=== PATIENT | female | born 1955 | race Caucasian/White ===

== ENCOUNTER 2016-12-02 12:04 | Inpatient (IN) ==
[2016-12-02] MEDS ORDERED: NS 1,000 ML IV ONE ×2 (12:30→14:44)
--- NOTE | 2016-12-02 13:06 | PROVIDER DOCUMENTATION ---
This chart was entered by Kaleigh Espinosa Scribe, acting as scribe for Fausto Hillman MD. HPI-General Adult - General Chief Complaint: Nausea/Vomiting Stated Complaint: weakness,nausea Time Seen by Provider: 12/02/16 12:24 Source: patient Allergies/Adverse Reactions: Patient Allergies Allergy/AdvReac Type Severity Reaction Status Date / Time codeine AdvReac Unknown Verified 03/22/15 15:33 Home Medications: Home Medication List Medication Instructions Recorded Confirmed Last Taken Type Bumetanide 1 mg PO DAILY 03/22/15 03/22/15 12/01/16 History Clonidine [Catapres] 0.1 mg PO DAILY 03/22/15 03/22/15 12/01/16 History Levofloxacin [Levaquin] 500 mg PO DAILY #10 tablet 03/22/15 12/01/16 Rx Lisinopril/Hydrochlorothiazide 10 mg PO DAILY 03/22/15 03/22/15 12/01/16 History [Lisinopril-Hctz 10-12.5 mg Tab] Methotrexate 4.2 mg PO DIRECTED 03/22/15 03/22/15 12/01/16 History - History of Present Illness -Gen Adult Nature of Presenting Problems: Pt is 61 y/o F presents to the ED with N and V. Pt states has been present for one week. Pt has had a cholecystectomy and has been having normal bowel movements. Location of Pain/Injury: reports: none Pain Radiation: reports: no radiation Quality of Pain: reports: none Severity: reports: mild Onset/Duration: reports: 1 week ago Timing: reports: intermittent Context/Activities at Onset: reports: light activity Modifying Factors: improves with: nothing Associated Symptoms: reports: nausea, vomiting Similar Symptoms Previously?: Yes Recently seen or treated by another doctor?: No Review of Systems - Adult - REVIEW OF SYSTEMS - ADULT Constitutional: reports: no symptoms reported Eyes: reports: no symptoms reported Ears, Nose, Mouth & Throat: reports: no symptoms reported Cardiovascular: reports: no symptoms reported Respiratory: reports: no symptoms reported Gastrointestinal: reports: nausea, vomiting. denies: abdominal pain, diarrhea Genitourinary: reports: no symptoms reported Musculoskeletal: reports: no symptoms reported Integumentary: reports: no symptoms reported Neurological: reports: no symptoms reported Psychiatric: reports: no symptoms reported Endocrine: reports: no symptoms reported Hematologic/Lymphatic: reports: no symptoms reported Allergic/Immunologic: reports: no symptoms reported All Other Systems: Reviewed and Negative Past History - Adult - PAST MEDICAL HISTORY-ADULT Review of Records: reports: Nursing Assessment Review, Medications Reviewed, Social history reviewed & non-contributory. Major Childhood Illnesses: reports: denies history Cardiovascular: reports: HTN Respiratory: reports: denies history Gastrointestinal: reports: denies history Obstetrical/Gynecological: reports: denies history Genitourinary: reports: denies history Musculoskeletal: reports: denies history Neurological: reports: denies history Endocrine/Immune: reports: Diabetes Other Conditions: reports: denies history - PRIOR SURGERIES/PROCEDURES Surgical/Procedure History: reports: cholecystectomy - IMMUNIZATION STATUS Childhood Immunizations: See Nurse Assessment Flu Vaccine: See Nurse Assessment - FAMILY HISTORY Family History: reviewed, not pertinent - SOCIAL HISTORY Smoking: quit less than 1 year, cigarettes Substance Use: denies Living Situation: family Physical Exam-General - PHYSICAL EXAM-ADULT Initial Vital Signs Reviewed: Yes - CONSTITUTIONAL General Appearance: appears well, alert, no apparent distress - EYES Eyes: PERRL/EOMI, pink conjunctivae - HEAD, EARS, NOSE, MOUTH & THROAT HENMT: normocephalic/atraumatic, moist mucous membranes, normal ENT inspection - NECK Neck: non-tender, normal inspection - RESPIRATORY Respiratory: chest non-tender, lungs clear, normal breath sounds - CARDIOVASCULAR Cardiovascular: normal peripheral pulses, regular rate, rhythm - GASTROINTESTINAL (ABDOMEN) Abdominal Exam: normal bowel sounds, non tender, soft - LYMPHATIC Lymphatic: no adenopathy - MUSCULOSKELETAL Back Exam: normal inspection Extremity: normal range of motion, normal inspection - SKIN Integumentary: normal color, normal turgor, warm/dry - NEUROLOGIC Neurologic: grossly normal - PSYCHIATRIC Psych/Mental Status: normal mood/affect, oriented x 3 Progress - PLAN OF CARE/RESULTS Progress/Plan/Lab Results: Vital Signs - 8 hr 12/02/16 12:15 Temperature 98.0 F Pulse Rate 84 Respiratory Rate 18 Blood Pressure 129/79 O2 Sat by Pulse Oximetry 96 Orders Category Date Time Status Saline Loc DIRECTED Care 12/02/16 12:30 Active NPO Diet 12/02/16 12:30 Active FLAT/UPRIGHT ABD/1 VIEW CHEST [RAD] Stat Exams 12/02/16 12:31 Ordered AMYLASE [CHEM] Stat Lab 12/02/16 12:30 Uncollected CBC WITH ELECTRONIC DIFF [HEME] Stat Lab 12/02/16 12:30 Uncollected COMPREHENSIVE METABOLIC PANEL [CHEM] Stat Lab 12/02/16 12:30 Uncollected LIPASE [CHEM] Stat Lab 12/02/16 12:30 Uncollected URINALYSIS W/POSS RFLX CULT-1 [URINALYSIS] Stat Lab 12/02/16 12:30 Uncollected 0.9% Sodium Chloride Inj [Ns] 1,000 ml Med 12/02/16 12:30 Active IV 999 mls/hr Result Diagrams: 12/02/16 13:41 12/02/16 13:41 - REASSESSMENT Reassessment #1 Time Reassessed: 14:55 Status: unchanged (not vomiting, but not taking anything orally) - XRAY 1 XRAY Study: Chest, Abdomen Impression: Normal XRAY Interpretation: no acute abnormality. - CONSULTS/PCP/HOSPITALIST Notification #1 *Consult/PCP/Hospitalist*: Dr. Quigley Time Discussed: 14:53 Reason/Comments: Dr. Hillman consulted with Dr. Quigley about PT Consult Disposition: Admit Departure - Departure Date of Disposition Decision: 12/02/16 Time of Disposition Decision: 14:54 DIAGNOSIS: Pancreatitis, acute Qualifiers: Pancreatitis type: idiopathic Acute pancreatitis complication: unspecified Qualified Code(s): K85.00 - Idiopathic acute pancreatitis without necrosis or infection Disposition: ADMITTED INPATIENT 09 Certified Medical Emergency: Emergent Condition: Stable Referrals and Follow-Ups: Rosario Sandhu MD [Primary Care Provider] - - Critical Care Note This patient required my direct & personal management of CC.: No This chart was documented by the indicated scribe, (Kaleigh Espinosa Scribe) and accurately reflects the services I performed and decisions made by me, Fausto Hillman MD, as attested by the provider's signature.
--- NOTE | 2016-12-02 13:33 | Diag Imaging Result Doc PS360 ---
EXAM: FLAT/UPRIGHT ABD/1 VIEW CHEST HISTORY: N/V TECHNIQUE: Four views COMPARISON: Chest is compared to 03/26/2015 FINDINGS: The lungs are well expanded. The heart is not enlarged. No pneumonia. Dense nodule in the lower left lung is unchanged. No free air beneath the diaphragm. Moderate scoliosis. The gallbladder has been removed. No bowel obstruction. No organomegaly. There are multiple calcifications within the liver consistent with granuloma. Long-standing arthritic changes to the hips, particularly on the right. IMPRESSION: No acute abnormality. Electronically signed by Max Maravilla 12/02/2016 1:30 PM
[2016-12-02 13:54] LABS: MANUAL DIFF NEEDED? NO
[2016-12-02 13:59] LABS: BASO% 0.1 % (0.0-0.8); EOS# 0.09 X1000 (0.0-0.7); EOS% 0.9 % (0.0-10.0); HEMATOCRIT 47.7 % (37.0-47.0); HEMOGLOBIN 15.4 g/dL (12.0-16.0); LYMPH# 1.22 X1000 (1.2-3.4); LYMPH% 11.6 % (20.5-51.1); MCH 27.4 PG (27-31); MCHC 32.3 g/dL (33-37); MCV 84.7 FL (81-99); MONO# 0.81 X1000 (0.11-0.59); MONO% 7.7 % (1.7-9.3); MPV 11.1 FL (7.4-10.4); NEUT% 79.7 % (42.2-75.2); PLT 400 X1000 (130-400); RBC 5.63 XMIL (4.2-5.4)
[2016-12-02] MEDS ORDERED: ZOFRAN ODT PO ONE (14:04)
[2016-12-02 14:24] LABS: AGAP 26; ALBUMIN 4.1 g/dL (3.5-5.0); ALKALINE PHOSPHATASE 64 U/L (32-104); AMYLASE 41 U/L (20-200); BUN 30 mg/dL (8-22); CALCIUM 9.7 mg/dL (8.8-10.2); CHLORIDE 83 mmol/L (98-107); COSMO 269; GOT 17 U/L (10-30); GPT 11 U/L (10-36); LIPASE 82 U/L (13-60); POTASSIUM 4.3 mmol/L (3.5-5.1); SODIUM 131 mmol/L (136-145); TCO2 22 mmol/L (25-35); TOTAL PROTEIN 8.1 g/dL (6.3-8.3)
[2016-12-02] MEDS ORDERED: ZOFRAN IV PRN (16:36)
[2016-12-02] MEDS: NS 1,000 ML IV SCH (17:43)
[2016-12-02] MEDS: LOVENOX SUBQ SCH (17:43)
--- NOTE | 2016-12-02 17:44 | HISTORY AND PHYSICAL ---
PRIMARY CARE PHYSICIAN: Dr. Nigel Sandhu. CHIEF COMPLAINT: Intractable nausea and vomiting. HISTORY OF PRESENT ILLNESS: A 61-year-old, white female with past medical history significant for diabetes (diet controlled), hypertension, psoriatic arthritis, asthma, chronic lower extremity lymphedema, and history of a laparoscopic cholecystectomy. Presents for evaluation of above- mentioned symptoms. Current history of present illness began on Sunday. At that time, patient developed acute onset nausea and vomiting. At that time, she denied additional symptoms including fevers, chills, abdominal pain, changes in bowel movements, and change in urination. Patient attributed her symptoms to a viral illness. Patient states by Sunday morning , her symptoms had improved considerably. Throughout the day Sunday, patient did reasonably well. Unfortunately, on Sunday evening, symptoms returned. Since that time, the symptoms have persisted and progressed. Once again, she complains primarily of nausea and vomiting. She does note some increasing fatigue as well as symptoms consistent with orthostasis. She has had intermittent palpitations. She denies change in bowel movements, hematochezia, melena, fevers, chills, abdominal pain, sick contacts, shortness of breath, chest pain, and recent change in her diet. Her p.o. intake has been minimal, none since . Because of her persistent and progressive illness, patient presented to the emergency department for further evaluation and management. Upon arrival, laboratory data was drawn. Patient was noted to have a borderline elevated white blood cell count of 10.53. Labs were consistent with dehydration. Lipase was slightly elevated at 82. The patient will be admitted to the hospital for full evaluation and management of this condition. PAST MEDICAL HISTORY: 1. Dietary controlled diabetes. 2. Hypertension. 3. History of psoriatic arthritis. 4. Asthma. 5. Chronic lower extremity lymphedema. 6. History of bilateral carpal tunnel releases. 7. History of a laparoscopic cholecystectomy in 2000 secondary to symptomatic cholelithiasis. CURRENT MEDICATIONS: 1. Clonidine 0.1 mg at bedtime. 2. Lisinopril/hydrochlorothiazide 20/25 daily. 3. Lasix 40 mg daily as needed. 4. Methotrexate 8 tablets weekly on Wednesdays. 5. Dulera 2 puffs twice daily. 6. Tylenol Arthritis every 8 hours. 7. Over the counter acid relief daily (unknown medication). ALLERGIES: Patient answered no known drug allergies. 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 She denies tobacco, alcohol or illicit drug use. FAMILY HISTORY: Patient's mother passed at age 82 secondary to complications of multiple chronic illnesses. Patient's father passed at age 83 secondary to multiple chronic illnesses. REVIEW OF SYSTEMS: A 12 point review of systems was performed. Pertinent positives and negatives are noted in history of present illness. PHYSICAL EXAMINATION: Temperature 98.0 degrees, heart rate 78, respiration is 18, blood pressure is 111/80. GENERAL: Chronically ill appearing, in no acute distress. HEENT: Normocephalic, atraumatic. Pupils equal, round, reactive to light. Extraocular muscles intact. Sclerae anicteric. [place] conjunctivae. Oral and nasopharynx clear without exudate. NECK: Supple. No lymphadenopathy. No thyromegaly. No bruits auscultated. CARDIOVASCULAR: Regular rate and rhythm. No significant murmurs, rubs, or gallops. PULMONARY: Clear to auscultation bilaterally. ABDOMEN: Soft, nontender, nondistended. Decreased bowel sounds. EXTREMITIES: Moves all extremities well. The patient presents with bilateral lower extremity compression hose. No significant clubbing, cyanosis or edema. DERMATOLOGIC: No evidence of rash. NEUROLOGIC: Cranial nerves 2 through 12 grossly intact. Motor and sensory grossly intact. PSYCHOLOGIC: Examination is appropriate. LABORATORY DATA: White blood cell count 10.53, hemoglobin 15.4, hematocrit 47.7 , platelet count is 400,000. Sodium 131, potassium 4.3, chloride 83, bicarb 22, BUN 30, creatinine 0.8, glucose 104, calcium 9.7, total bilirubin 0.60, total protein 8.1, albumin 4.1, alkaline phosphatase 64, AST 17, ALT 11, amylase 41, lipase 82. IMAGING: X-ray of the abdomen reveals no acute abnormality. ASSESSMENT AND PLAN: A 61-year-old, white female with a complicated past medical history as noted who presents for evaluation of intractable nausea and vomiting. Upon arrival, patient was found to have be significantly dehydrated with a slight elevation of lipase. Examination is significant only for hypoactive bowel sounds. The patient will be admitted to the hospital for full evaluation and management of this condition. 1. Admit to General Medicine. 2. Intractable nausea and vomiting - At this point, I suspect this is likely secondary to a viral illness. In addition, this is likely compounded by underlying dehydrated state. The patient will be placed on aggressive IV hydration. At this point, with a completely benign abdominal examination, we will hold off on further radiologic imaging. Should her condition not improve rapidly, we will consider further evaluation. We will start as-needed Zofran. 3. Dehydration - This is apparent on examination and per laboratory data. The patient will be started on IV fluids. This, too, will be followed as an inpatient. 4. Mild elevation of lipase with possible early pancreatitis - Examination would suggest this is not an underlying pancreatitis. I suspect the elevation of lipase is reactive rather than of primary etiology. We will, however, aggressively manage this condition with IV hydration. 5. Mild hyponatremia - The patient is currently treated with chronic diuretics. I suspect this is the etiology. These will be held for now. 6. Hypertension - The patient's clonidine, lisinopril, and hydrochlorothiazide will be held for now. I suspect that patient has experienced intermittent orthostatic hypotension associated with her dehydrated state and continued medications. We will follow this closely as an inpatient as well. 7. Psoriatic arthritis - We will hold patient's methotrexate. We will continue Tylenol Arthritis as needed. 8. Asthma - We will continue patient on Dulera therapy. 9. Fluid, electrolytes, nutrition - We will monitor electrolytes. Normal saline at 100 mL an hour. A clear liquid diet. 10. Prophylaxis - Patient will be placed on subcutaneous Lovenox. cc: MD Madyson Rios MD MTDAva
[2016-12-02 18:31] LABS: URINE CULTURE NEEDED? NO; URINE MICRO REVIEW NEEDED? NO; URINE SOURCE CATH
[2016-12-02 18:33] LABS: BILIRUBIN URINE SMALL (NEGATIVE); BLOOD URINE MODERATE (NEGATIVE); COLOR YELLOW; GLUCOSE URINE NEGATIVE (NEGATIVE); LEUKOCYTES URINE NEGATIVE (NEGATIVE); NITRITE URINE NEGATIVE (NEGATIVE); PROTEIN URINE 30 mg/dL (NEGATIVE); SP GRAVITY URINE 1.022; TURBIDITY URINE CLEAR (CLEAR); UR EPITHELIAL CELLS <10 /HPF (<10); URINE BACTERIA NEGATIVE /HPF; URINE RBC <10 /HPF (<10); URINE WBC <10 /HPF (<10); UROBILINOGEN URINE NORMAL (NORMAL)
[2016-12-02] MEDS ORDERED: DULERA 100 MCG/5 MCG INHALER INH SCH (19:30)
[2016-12-02] MEDS: PRILOSEC PO SCH (20:12)
[2016-12-03] MEDS: PRILOSEC PO SCH (06:01)
[2016-12-03 06:06] LABS: MANUAL DIFF NEEDED? NO
[2016-12-03 06:10] LABS: BASO% 0.1 % (0.0-0.8); EOS# 0.28 X1000 (0.0-0.7); EOS% 3.7 % (0.0-10.0); HEMATOCRIT 42.4 % (37.0-47.0); HEMOGLOBIN 13.9 g/dL (12.0-16.0); IMM GRAN# 0.02 X1000 (0.0-0.04); IMM GRAN% 0.3 % (0.0-0.5); LYMPH# 1.44 X1000 (1.2-3.4); LYMPH% 18.9 % (20.5-51.1); MCH 27.6 PG (27-31); MCHC 32.8 g/dL (33-37); MCV 84.3 FL (81-99); MONO# 0.57 X1000 (0.11-0.59); MONO% 7.5 % (1.7-9.3); NEUT% 69.5 % (42.2-75.2); PLT 316 X1000 (130-400); RBC 5.03 XMIL (4.2-5.4)
[2016-12-03 06:34] LABS: AGAP 13; ALBUMIN 3.3 g/dL (3.5-5.0); ALKALINE PHOSPHATASE 53 U/L (32-104); AMYLASE 35 U/L (20-200); BUN 17 mg/dL (8-22); CALCIUM 8.7 mg/dL (8.8-10.2); CHLORIDE 97 mmol/L (98-107); COSMO 274; GOT 12 U/L (10-30); GPT 9 U/L (10-36); LIPASE 82 U/L (13-60); POTASSIUM 3.2 mmol/L (3.5-5.1); SODIUM 136 mmol/L (136-145); TCO2 26 mmol/L (25-35); TOTAL BILIRUBIN 0.54 mg/dL (0.20-1.00); TOTAL PROTEIN 6.4 g/dL (6.3-8.3)
[2016-12-03] MEDS: TYLENOL PO PRN ×3 (09:32→22:04)
[2016-12-03] MEDS: NS 1,000 ML IV SCH ×3 (09:33→22:03)
[2016-12-03] MEDS ORDERED: KLOR-CON PO ONE (10:34)
--- NOTE | 2016-12-03 12:50 | PROGRESS NOTE ---
DATE: 12/03/2016 SUBJECTIVE: Mrs. Donna Vanegas was admitted to [facility] with intractable nausea and vomiting. She was able to tolerate clear liquids last night and this morning. She still feels nauseated but has had no further vomiting. She denies any abdominal pain. She had a normal bowel movement this morning. She denies any fever, chills, nausea, or vomiting. PHYSICAL EXAMINATION: Vital signs: Her blood pressure remains in the 120 systolically and the 70s diastolically off blood pressure medications. Temperature 98.0 degrees, pulse 61, respirations 18, BP 127/73. CV: Regular rate and rhythm. Lungs: Clear. Abdomen: Soft, nontender, with active bowel sounds. No hepatosplenomegaly. No abdominal bruits. ASSESSMENT: 1. Volume depletion secondary to intractable nausea and vomiting. 2. Intractable nausea and vomiting secondary to viral gastroenteritis. 3. Mild hyponatremia, resolved. PLAN: We will continue fluid resuscitation with normal saline at 100 mL per hour I will advance her to a bland diet. We will treat the nausea on a p.r.n. basis with Zofran. If she is able to tolerate a bland diet without persistent nausea and vomiting or abdominal pain, I believe that we should be able to discharge her home tomorrow. cc: Madyson Sandhu MD
[2016-12-03] MEDS: LOVENOX SUBQ SCH (16:58)
[2016-12-04] MEDS: PRILOSEC PO SCH (06:14)
[2016-12-04 06:21] LABS: AGAP 11; BUN 10 mg/dL (8-22); CALCIUM 8.3 mg/dL (8.8-10.2); CHLORIDE 101 mmol/L (98-107); COSMO 273; POTASSIUM 3.7 mmol/L (3.5-5.1); SODIUM 137 mmol/L (136-145); TCO2 25 mmol/L (25-35)
[2016-12-04 07:50] VITALS: BP 124/73
[2016-12-04] MEDS: NS 1,000 ML IV SCH (08:15)
[2016-12-04] MEDS: TYLENOL PO PRN (08:15)
--- NOTE | 2016-12-05 13:19 | DISCHARGE SUMMARY ---
ADMISSION DATE: 12/02/2016 DISCHARGE DATE: 12/04/2016 DISCHARGE DIAGNOSES: 1. Volume depletion secondary to intractable nausea and vomiting. 2. Intractable nausea and vomiting due to a viral gastroenteritis. 3. Essential hypertension. 4. Mild intermittent asthma, uncomplicated. 5. Gastroesophageal reflux disease. 6. Psoriatic arthritis. 7. Chronic lower extremity lymphedema. 8. Type 2 [id number] diabetes mellitus controlled by diet alone. DISCHARGE INSTRUCTIONS: 1. Return to clinic in 1 week to see me, Dr. Familia Sandhu, for transition of care visit. 2. Activity as tolerated. 3. 1800 calorie ADA diet. MEDICATIONS: Dulera 100/5 two puffs b.i.d., omeprazole 40 mg daily, lisinopril/hydrochlorothiazide 20/25 mg p.o. daily, methotrexate 2.5 mg as directed, ranitidine 150 mg daily. PHYSICAL EXAMINATION: General: This is a well-developed, well-nourished, 61-year-old lady in no apparent distress. Vital signs: She is afebrile. Vital signs are stable. CV: Regular rate and rhythm. Lungs: Clear. Abdomen: Soft, nontender, with active bowel sounds. HOSPITAL COURSE: Mrs. Vanegas was admitted to [facility] with persistent nausea and vomiting. She had no additional symptoms such as fever, chills, abdominal pain or diarrhea. She was admitted to [facility]. Her blood pressure medicines were held. She was aggressively rehydrated with normal saline. Her nausea and vomiting was treated on a p.r.n. basis with Zofran. As her nausea and vomiting improved she was started on clear liquids and she was advanced to a GI soft diet at the time of discharge. She was tolerating a GI soft diet without nausea, vomiting, or abdominal pain at the time of discharge. We felt that she had a viral gastroenteritis. I really stressed to her the importance of drinking plenty of fluids at home. I told her that if she were drinking enough fluids that her urine would be clear when she voided. She does have a longstanding history of hypertension. We initially held her blood pressure medicines due to the volume depletion. Her blood pressure remains stable with fluid resuscitation. Systolic blood pressures were in the 120s whereas her diastolic blood pressures range from 60-80. At the time of discharge I felt that her blood pressure was not high enough to justify resuming clonidine. We also held the additional Lasix which I felt contributed to the volume depletion in the setting of a viral gastroenteritis. We will continue lisinopril/hydrochlorothiazide 20/25 mg 1 p.o. daily and I will recheck her blood pressure in the office in 1 week. She does have a longstanding history of asthma. Clinically she is breathing comfortably. She denies any shortness of breath or unexplained cough. We will continue to Dulera 2 puffs b.i.d. and use a Proventil HFA inhaler 2 puffs q.6 hours for breakthrough shortness of breath. She does have a longstanding history of psoriatic arthritis. Her joint pain is under fairly good control. We will resume Tylenol every 8 hours as needed for joint pain and resume the methotrexate 2.5 mg 8 tablets weekly. Having reached maximum hospital benefit, the patient was discharged in stable condition. cc: Madyson Sandhu MD
== END 2016-12-04 11:12 | disposition home or self-care (01) ==
LOC: ED 12:04 → 4N 16:17
PROVIDERS: ADMIT Internal Medicine; ATTEND Internal Medicine

== ENCOUNTER 2018-09-12 23:22 | Inpatient (IN) ==
[2018-09-13 01:48] LABS: BASO# 0.01 X1000 (0.0-0.2); BASO% 0.1 % (0.0-0.8); EOS# 0.16 X1000 (0.0-0.7); HEMATOCRIT 32.8 % (37.0-47.0); HEMOGLOBIN 10.2 g/dL (12.0-16.0); IMM GRAN# 0.02 X1000 (0.0-0.04); IMM GRAN% 0.2 % (0.0-0.5); LYMPH# 1.27 X1000 (1.2-3.4); LYMPH% 15.5 % (20.5-51.1); MCH 26.1 PG (27-31); MCHC 31.1 g/dL (33-37); MCV 83.9 FL (81-99); MONO# 0.79 X1000 (0.11-0.59); MONO% 9.6 % (1.7-9.3); MPV 9.4 FL (7.4-10.4); NEUT# 5.95 X1000 (1.4-6.5); NEUT% 72.6 % (42.2-75.2); PLT 479 X1000 (130-400); RBC 3.91 XMIL (4.2-5.4); RDW 15.1 % (11.5-14.5)
[2018-09-13 02:18] LABS: AGAP 11; ALB/GLOB RATIO 0.9; ALBUMIN 3.1 g/dL (3.5-5.0); ALKALINE PHOSPHATASE 73 U/L (32-104); BUN 18 mg/dL (8-22); CALCIUM 8.5 mg/dL (8.8-10.2); CHLORIDE 105 mmol/L (98-107); COSMO 288; CREATININE 0.5 mg/dL (0.5-0.9); ESTIMATED GFR > 60; GLUCOSE 121 mg/dL (70-104); GOT 7 U/L (10-30); GPT < 5 U/L (10-36); POTASSIUM 3.7 mmol/L (3.5-5.1); SODIUM 143 mmol/L (136-145); TCO2 27 mmol/L (25-35); TOTAL BILIRUBIN 0.22 mg/dL (0.20-1.00); TOTAL PROTEIN 6.4 g/dL (6.3-8.3)
[2018-09-13] MEDS ORDERED: ZOSYN 3.375 GM in NS 50 ML IV ONE (02:21)
[2018-09-13] MEDS ORDERED: NS 1,000 ML IV ONE (02:21)
[2018-09-13] MEDS ORDERED: VANCOMYCIN 1 GM/NS 1 GM/250 ML IVPB IV ONE ×2 (02:21→06:30)
--- NOTE | 2018-09-13 04:54 | HISTORY AND PHYSICAL ---
CHIEF COMPLAINT: Right ankle pain. HISTORY OF PRESENT ILLNESS: The patient is a 63-year-old white female with history of diet- controlled diabetes, hypertension, asthma, both psoriatic and osteoarthritis. She presents via EMS. She had some increased leg pain and slightly decreased ability to ambulate. Her brother came over to check on her, found her house in disarray and found that she had compression hose on continuously for months. On removing them, he found deep ulcers and infection, and called EMS to bring her here. On evaluation here, she is found to have bilateral anterior leg cellulitis as well as deep infected appearing ulcers of the right lateral ankle/foot. She reports that when she 1st began having discomfort, she called her PCPs office and they placed her on Keflex this last Sunday, a couple of days ago, which she has been taking, but there has been no change. She denies fever, chills at home. She states she has been eating and drinking well. She does endorse some limited mobility, but states she is able to get around her house enough. REVIEW OF SYSTEMS: Twelve-point review of systems negative except as per HPI. ALLERGIES: Codeine and sulfa. PAST MEDICAL HISTORY: Hypertension, asthma, GERD, psoriatic arthritis, osteoarthritis, diet- controlled diabetes, chronic venous stasis. PAST SURGICAL HISTORY: Cholecystectomy, right femur fracture repair, wisdom teeth removal. SOCIAL HISTORY: The patient denies tobacco, alcohol, and illicit drug use. FAMILY HISTORY: Mother of uncertain causes. Father related to COPD. LABS: WBC 8.2, hemoglobin 10.2, hematocrit 32.8, platelets 479,000. Complete metabolic panel unremarkable aside from glucose 121, albumin 3.1, lactate 1.9. IMAGING: Read on x-rays of the lower extremities pending. No obvious osteomyelitis or fracture on my review. She does have obvious ulcers of the right ankle. VITAL SIGNS: Pulse 90, respirations 18, blood pressure 136/90, O2 saturation 99% on room air, afebrile. PHYSICAL EXAMINATION: GENERAL: No acute distress, slightly unkempt. HEENT: Normocephalic, atraumatic. Slightly dry mucous membranes. No cervical adenopathy. CARDIOVASCULAR: Regular rate and rhythm. No murmurs noted. PULMONARY: Clear to auscultation bilaterally. ABDOMEN: Soft, nontender, nondistended. Bowel sounds positive. EXTREMITIES: Peripheral pulses barely discernible. Chronic venous stasis changes of bilateral legs. Erythema and warmth anteriorly on both anterior legs. Multiple shallow dry ulcers of both legs, but on the right lateral ankle/foot there are 2 deeper ulcers, the worst of which is narrow but long, approximately 3 cm, uncertain depths, but at least stage III, likely stage IV, and does appear to be infected. Severe arthritic deformities of both hands and to a lesser extent of the toes. Long unkempt nails. NEUROLOGIC: The patient's cranial nerves grossly intact. Globally weak. Very little movement at the shoulder bilaterally, which patient states is baseline. No clear focal deficits. PSYCHIATRIC: Normal mood and affect. Awake, alert, oriented x3. SKIN: Multiple ulcers as above, otherwise no new/fresh rashes or lesions identified. ASSESSMENT AND PLAN: 1. Bilateral lower extremity cellulitis and right lower extremity infected ulcer. Likely due to wearing her compression hose for months continuously. Given her history of hypertension, diabetes, and chronic venous stasis there is concern for arterial insufficiency as well. Will get ultrasounds to evaluate. We will start patient on vancomycin and cefepime. Dr. Ordonez with Orthopedics contacted in the ED. Will get final reads on x-rays and see what he says. May need MRI to confirm or deny osteomyelitis of that deepest wound on the right ankle. Patient instructed that it is better to leave her compression hose off entirely if she cannot get them off herself rather than leave them on for prolonged periods of time. Using the broad- spectrum antibiotics above in light of her lack of improvement on p.o. Keflex. 2. Hypertension. Patient's normotensive to minimally low in the ED, so we will hold home blood pressure medicine for now, but likely restart if blood pressure remains stable. Gentle IV fluids. 3. Asthma. Continue home inhaler. No sign of exacerbation at this time. 4. Gastroesophageal reflux disease. Continue proton pump inhibitor. 5. Psoriatic arthritis. Patient previously on methotrexate but states she has been off of this for quite some time. States that she reacts poorly to pain medicine, would prefer to take Tylenol for now. Will give Tylenol. 6. Diet-controlled diabetes. We will check A1c and monitor glucoses. 7. Deep vein thrombosis prophylaxis. Lovenox pending Orthopedics evaluation. [facility]
[2018-09-13] MEDS ORDERED: VANCOMYCIN IV PER PHARMACY MISC SCH ×2 (05:06→08:45)
[2018-09-13 05:12] LABS: URINE SOURCE CLEAN CATCH
[2018-09-13 05:19] LABS: BILIRUBIN URINE NEGATIVE (NEGATIVE); BLOOD URINE SMALL (NEGATIVE); COLOR YELLOW; GLUCOSE URINE NEGATIVE (NEGATIVE); KETONE URINE 10 mg/dL (NEGATIVE); LEUKOCYTES URINE NEGATIVE (NEGATIVE); NITRITE URINE NEGATIVE (NEGATIVE); PROTEIN URINE TRACE mg/dL (NEGATIVE); SP GRAVITY URINE 1.029; TURBIDITY URINE CLEAR (CLEAR); UROBILINOGEN URINE 2 mg/dL (NORMAL)
[2018-09-13 05:20] LABS: UR EPITHELIAL CELLS <10 /HPF (<10); URINE BACTERIA NEGATIVE /HPF; URINE RBC <10 /HPF (<10); URINE WBC <10 /HPF (<10)
[2018-09-13] MEDS ORDERED: MAXIPIME 2 GM in NS 100 ML IV SCH (06:00)
[2018-09-13] MEDS: NS 1,000 ML IV SCH ×2 (06:22→20:17)
[2018-09-13] MEDS: PRILOSEC PO SCH (06:22)
[2018-09-13] MEDS: LOVENOX SUBQ SCH (06:23)
--- NOTE | 2018-09-13 07:14 | Diag Imaging Result Doc PS360 ---
LOWER LEG-RIGHT - 09/12/2018 INDICATION: OM TECHNIQUE: Six views COMPARISON: None FINDINGS: There is diffuse pedal edema. There is severe degeneration at the knee and ankle. No fractures or bony erosions. IMPRESSION: No acute disease. Electronically signed by Alton Bonner 09/13/2018 7:12 AM
--- NOTE | 2018-09-13 07:15 | Diag Imaging Result Doc PS360 ---
LOWER LEG-LEFT - 09/12/2018 INDICATION: OM TECHNIQUE: Five views COMPARISON: 03/28/2017 FINDINGS: There is diffuse pedal edema. There are stable end-stage osteoarthritis of the knee. No fractures or bony erosions. IMPRESSION: No acute disease. Electronically signed by Alton Bonner 09/13/2018 7:12 AM
[2018-09-13] MEDS: DULERA 100 MCG/5 MCG INHALER INH SCH (07:30)
--- NOTE | 2018-09-13 09:10 | PROGRESS NOTE ---
DATE: 09/13/2018 SUBJECTIVE: Mrs. Vanegas has a longstanding history of hypertension. Her blood pressure is fluctuating. Systolic blood pressures have been in the 150s and 160s whereas her diastolic blood pressures have been in the 70s and 80s. She denies any chest pain, palpitations, or anginal equivalents. She was admitted to [facility] with bilateral lower extremity cellulitis. She has stage III ulcers on the tibial aspect of her right leg and on the lateral ankle. She denies any fever, chills, nausea or vomiting. OBJECTIVE: Vital Signs: She is afebrile. Pulse 89, respirations 15, blood pressure 163/88. Cardiovascular: Regular rate and rhythm. Lungs: Clear. Abdomen: Soft, nontender, with active bowel sounds. Extremities: She has marked swelling and erythema of the left lower extremity. She has swelling and erythema of the right lower extremity. She has a stage III ulcer on the tibial aspect of the lower right leg. Tendons are visible to the naked eye. Distal pulses are 2+ and symmetric. LABORATORY DATA: A CBC demonstrated white count of 8.2, hemoglobin 10.2, hematocrit 32.8, and a platelet count of 479,000. Electrolytes demonstrated the following: Sodium 143, potassium 3.7, BUN 18, creatinine 0.5, and glucose 121. ASSESSMENT AND PLAN: 1. Hypertension. Her blood pressure is too high. I will resume lisinopril/hydrochlorothiazide 10/12.5 mg daily and monitor her blood pressure. 2. Type 2 ttp-[id number]-[id number] diabetes mellitus. We will continue her on an 1800 calorie ADA diet, pattern sugars and Humulin R sliding scale. 3. Cellulitis of the lower extremities with a stage III ulcer on the tibial aspect of the right leg. We will continue broad-spectrum antibiotics including Zosyn and vancomycin pending wound and blood cultures. She does have peripheral pulses bilaterally. We will check noninvasive arterial studies of the lower extremities. I will arrange for an MRI of the right lower extremity to rule out osteomyelitis. Plain films of the leg and ankle demonstrated no lytic or erosive lesions. 4. Asthma. We will continue Dulera 100/5 two puffs b.i.d. and use Ventolin HFA inhalers 2 puffs q.6 hours as needed for shortness of breath. cc: Madyson Sandhu MD
[2018-09-13] MEDS: PRINZIDE 10/12.5MG PO SCH (09:55)
[2018-09-13] MEDS: ZOSYN 4.5 GM in NS 100 ML IV SCH ×3 (09:55→20:17)
[2018-09-13] MEDS: ASPIRIN PO SCH (09:55)
--- NOTE | 2018-09-13 10:35 | Diag Imaging Result Doc PS360 ---
MRI LOW EXT JT W/WO CON-RIGHT - 09/13/2018 INDICATION: STAGE 3 ULCER RIGHT LOWER LEG R O OSTEOMYELITIS TECHNIQUE: MRI right lower leg without and with intravenous contrast COMPARISON: X-rays from earlier FINDINGS: There is a penetrating ulcer at the anterior lower leg centered at the distal third of the tibial shaft. This measures about 3.6 x 1.9 cm in craniocaudal and lateral dimensions. There is ulceration of the skin and subcutaneous tissue down to the level of the tibialis anterior tendon which appears completely exposed. There is perhaps some mild abnormal signal in the tendon but otherwise the tendon appears intact. No drainable fluid collections. There is some clearly degenerative bone marrow edema at both sides of the ankle joint. Otherwise bone marrow signal is all normal. There is significant diffuse pedal edema throughout the subcutaneous tissues. Arterial and venous enhancement appear grossly normal. IMPRESSION: 1. Anterior lower leg soft tissue ulceration down to the level of the tibialis anterior tendon which is exposed. Mild tendinopathy here. No osteomyelitis. 2. Degenerative bone marrow edema at the ankle joint. Electronically signed by Alton Bonner 09/13/2018 10:33 AM
--- NOTE | 2018-09-13 10:35 | ORTHOPAEDICS CONSULTATION ---
DATE: 09/13/2018 CHIEF COMPLAINT: Bilateral leg pain. HISTORY OF PRESENT ILLNESS: Ms Vanegas is a 63-year-old female who presented to the emergency department last night for evaluation of bilateral lower extremities. Her brother sounds like he found her in her apartment disoriented and found that she had compression socks on for several months without taking them off and had developed wounds on the right lower extremity. She has been admitted per the medicine service. PAST MEDICAL HISTORY: Diabetes, asthma, reflux, psoriatic arthritis, venous stasis and lymphedema. PAST SURGICAL HISTORY: Cholecystectomy, femur ORIF. Social History: She denies tobacco or alcohol use. She lives alone. She lives alone in an apartment. FAMILY HISTORY: Positive for this COPD.Medications: Medications per medical record. Allergies: Allergies codeine and sulfa. PHYSICAL EXAMINATION: General: Slightly older-appearing female lying in bed, no acute distress. Head and Neck: Normocephalic, atraumatic. Respirations: Nonlabored breathing. Cardiovascular: Regular pulse. Abdomen: Nondistended, Extremities: Right lower extremity exam: She has erythema throughout the whole calf area. Down around the ankle there is an anterior wound with the whole anterior tibialis tendon exposed and there was pus coming out of that sheath. Posteriorly can see the Achilles tendon through a wound. There is not a lot of purulence back there. She does have some sensation to her feet. Her feet are not that swollen or erythematous. ASSESSMENT: 1. Bilateral lower extremity cellulitis. 2. Right pressure ulcers anteriorly and posteriorly to the ankle. PLAN: I discussed with Ms. Vanegas this is a very serious problem. Unfortunately she has got infection and exposed tendons anteriorly and posteriorly on this right lower extremity. She definitely needs to be on IV antibiotics to try to clear infection. She may end up needing her anterior tibialis tendon and Achilles tendon removed so she can heal these wounds. I discussed with her we did that part of her function to the foot would be compromised and she would have to be at least in a brace for the rest of her life. This may actually end up an amputation as well. I am also going to get general surgery to take a look at the wound and see what they think about either saving the leg or proceeding with a [id number] amputation. cc: MD Madyson Sierra MD
--- NOTE | 2018-09-13 14:13 | PROVIDER DOCUMENTATION ---
This chart was entered by Serenity Trimble Scribe, acting as scribe for Mary Dunbar MD. HPI-General Adult - General Source: patient, EMS - History of Present Illness -Gen Adult Nature of Presenting Problems: Pt arrives EMS from home, pt brother came to her house and found her covered in urine and feces, with her stocking grown into her ankles because of the large amount of edema present. Pt sts that she has been having redness and swelling to legs for the last 4-5 weeks. She has been able to walk w/ her cane until today. she called dr. Sandhu and got abx for it but not improving. She has hx of diabetes, htn and severe knee arthritis and lymphedema b/l legs. Location of Pain/Injury: reports: lower extremity (bilateral legs. feet) Pain Radiation: reports: no radiation Severity: reports: severe Onset/Duration: reports: gradual Timing: reports: still present Context/Activities at Onset: reports: none Modifying Factors: improves with: nothing Associated Symptoms: reports: trouble walking. denies: diarrhea, dizziness, nausea, shortness of breath, vomiting Similar Symptoms Previously?: Yes Recently seen or treated by another doctor?: No <Mary Dunbar - Last Filed: 09/13/18 02:28> <Colette Galvez - Last Filed: 09/13/18 03:00> - General Chief Complaint: General Adult Stated Complaint: infection to legs Time Seen by Provider: 09/12/18 23:47 Allergies/Adverse Reactions: Patient Allergies Allergy/AdvReac Type Severity Reaction Status Date / Time codeine AdvReac Unknown Verified 03/28/17 13:55 Sulfa (Sulfonamide AdvReac NAUSEA Verified 03/28/17 13:55 Antibiotics) Home Medications: Home Medication List Medication Instructions Recorded Confirmed Last Taken Type Lisinopril/Hydrochlorothiazide 25 mg PO DAILY 03/22/15 03/28/17 03/28/17 History [Lisinopril-Hctz 10-12.5 mg Tab] Methotrexate 4.2 mg PO DIRECTED 03/22/15 03/28/17 03/24/17 History Mometasone/Formoterol [Dulera 100 2 puff INH RTBID inhaler 12/04/16 03/28/17 03/28/17 07:00 Rx Mcg/5 Mcg Inhaler] Omeprazole [Prilosec] 40 mg PO DAILY@0700 capsule 12/04/16 03/28/17 Unknown Rx Aspirin 81 mg PO DAILY 03/28/17 03/28/17 03/28/17 07:00 History Review of Systems - Adult - REVIEW OF SYSTEMS - ADULT Constitutional: reports: no symptoms reported. denies: chills, fever Eyes: reports: no symptoms reported Ears, Nose, Mouth & Throat: reports: no symptoms reported Cardiovascular: reports: no symptoms reported Respiratory: reports: no symptoms reported. denies: cough, shortness of breath, wheezing Gastrointestinal: reports: no symptoms reported. denies: abdominal pain, diarrhea, nausea, vomiting Genitourinary: reports: no symptoms reported, frequency Musculoskeletal: reports: no symptoms reported Integumentary: reports: no symptoms reported Neurological: reports: no symptoms reported. denies: dizziness/vertigo, headache/migraines Psychiatric: reports: no symptoms reported Endocrine: reports: no symptoms reported Hematologic/Lymphatic: reports: no symptoms reported Allergic/Immunologic: reports: no symptoms reported All Other Systems: Reviewed and Negative <Mary Dunbar - Last Filed: 09/13/18 02:28> Past History - Adult - PAST MEDICAL HISTORY-ADULT Review of Records: reports: Old Records Reviewed, Nursing Assessment Review, Medications Reviewed, Social history reviewed & non-contributory. Major Childhood Illnesses: reports: denies history Cardiovascular: reports: HTN Respiratory: reports: denies history Gastrointestinal: reports: denies history Obstetrical/Gynecological: reports: denies history Genitourinary: reports: denies history Musculoskeletal: reports: arthritis Neurological: reports: denies history Endocrine/Immune: reports: Diabetes Other Conditions: reports: denies history - PRIOR SURGERIES/PROCEDURES Surgical/Procedure History: reports: cholecystectomy - IMMUNIZATION STATUS Childhood Immunizations: See Nurse Assessment Flu Vaccine: See Nurse Assessment - FAMILY HISTORY Family History: reviewed, not pertinent - SOCIAL HISTORY Smoking: denies, non-smoker Substance Use: none/never Alcohol Use Frequency: never Living Situation: alone <Mary Dunbar - Last Filed: 09/13/18 02:28> Physical Exam-General - CONSTITUTIONAL General Appearance: alert, no apparent distress, obese, other (Pt is covered in feces and urine, her stockings are soiled and stuck to legs.) - EYES Eyes: PERRL/EOMI, pink conjunctivae - HEAD, EARS, NOSE, MOUTH & THROAT HENMT: normocephalic/atraumatic, moist mucous membranes, normal ENT inspection, TMs normal, pharynx normal - NECK Neck: non-tender, full range of motion, supple - RESPIRATORY Respiratory: lungs clear - CARDIOVASCULAR Cardiovascular: regular rate, rhythm - GASTROINTESTINAL (ABDOMEN) Abdominal Exam: normal bowel sounds, non tender, soft - LYMPHATIC Lymphatic: no adenopathy - MUSCULOSKELETAL Back Exam: normal inspection, no CVA tenderness, no vertebral tenderness Extremity: erythema, inflammation, swelling, tenderness, other (Pt legs are l argely swollen, tender, inflammed and weeping. Pt is wearing stockings that are soiled and stuck to lower legs bilaterally. She has dried feces on legs and feet. Toe nails are unkempt and very long.) - SKIN Integumentary: normal color, warm/dry - NEUROLOGIC Neurologic: grossly normal - PSYCHIATRIC Psych/Mental Status: normal mood/affect, normal thought content, normal thought process, oriented x 3 <Mary Dunbar - Last Filed: 09/13/18 02:28> Progress - PLAN OF CARE/RESULTS Result Diagrams: 09/12/18 00:55 09/12/18 00:55 - REASSESSMENT Reassessment #1 Time Reassessed: 02:22 (s/p clean, and toe nails clipped and trimmed. right t ibial tendonson exposed. sample taken and sent to lab. will treat with vanc/zosyn. ) - CONSULTS/PCP/HOSPITALIST Notification #1 *Consult/PCP/Hospitalist*: Dr. Ordonez Time Discussed: 02:24 Consult Disposition: Admit #2 Consult: Dr. Walker - CHANGE OF SHIFT REPORT (ED Provider) 1 Report Given and Care Transferred to:: Dr. Cornejo Time of Transfer: 02:28 Items Pending: Other (admission pending) <Mary Dunbar - Last Filed: 09/13/18 02:28> - PLAN OF CARE/RESULTS Progress/Plan/Lab Results: Vital Signs - 8 hr 09/13/18 00:29 09/13/18 00:32 09/13/18 00:47 Pulse Rate Respiratory Rate Blood Pressure 131/59 98/70 114/62 09/13/18 01:02 09/13/18 01:17 09/13/18 01:32 Pulse Rate Respiratory Rate Blood Pressure 130/74 134/66 114/74 09/13/18 02:01 09/13/18 02:03 09/13/18 02:13 Pulse Rate 100 H 101 H 101 H Respiratory Rate 23 16 16 Blood Pressure 130/71 124/55 131/59 09/13/18 02:17 09/13/18 02:32 Pulse Rate 89 90 Respiratory Rate 18 18 Blood Pressure 118/72 136/90 Laboratory Results - last 24 hr 09/12/18 09/12/18 09/13/18 00:55 00:55 00:55 WBC 8.20 RBC 3.91 L Hgb 10.2 L Hct 32.8 L MCV 83.9 MCH 26.1 L MCHC 31.1 L RDW Std Deviation 15.1 H Plt Count 479 H MPV 9.4 Immature Gran % (Auto) 0.2 Neut % (Auto) 72.6 Lymph % (Auto) 15.5 L George % (Auto) 9.6 H Eos % (Auto) 2.0 Baso % (Auto) 0.1 Immature Gran # (Auto) 0.02 Neut # (Auto) 5.95 Lymph # (Auto) 1.27 George # (Auto) 0.79 H Eos # (Auto) 0.16 Baso # (Auto) 0.01 Sodium 143 Potassium 3.7 Chloride 105 Carbon Dioxide 27 Anion Gap 11 BUN 18 Creatinine 0.5 Estimated GFR/1.73 m2 > 60 BUN/Creatinine Ratio 36 Glucose 121 H Calculated Osmolality 288 Calcium 8.5 L Total Bilirubin 0.22 AST 7 L ALT < 5 L Alkaline Phosphatase 73 C-React Prot High Sens > 10.000 Total Protein 6.4 Albumin 3.1 L Globulin 3.3 Albumin/Globulin Ratio 0.9 Plasma Lactate 09/13/18 00:55 WBC RBC Hgb Hct MCV MCH MCHC RDW Std Deviation Plt Count MPV Immature Gran % (Auto) Neut % (Auto) Lymph % (Auto) George % (Auto) Eos % (Auto) Baso % (Auto) Immature Gran # (Auto) Neut # (Auto) Lymph # (Auto) George # (Auto) Eos # (Auto) Baso # (Auto) Sodium Potassium Chloride Carbon Dioxide Anion Gap BUN Creatinine Estimated GFR/1.73 m2 BUN/Creatinine Ratio Glucose Calculated Osmolality Calcium Total Bilirubin AST ALT Alkaline Phosphatase C-React Prot High Sens Total Protein Albumin Globulin Albumin/Globulin Ratio Plasma Lactate 1.9 Orders Category Date Time Status LOWER LEG-LEFT [RAD] Stat Exams 09/12/18 23:48 Taken LOWER LEG-RIGHT [RAD] Stat Exams 09/12/18 23:48 Taken BLOOD CULTURE [BLDCUL] Stat Lab 09/13/18 02:05 Results CBC WITH ELECTRONIC DIFF [HEME] Stat Lab 09/12/18 00:55 Completed COMPREHENSIVE METABOLIC PANEL [CHEM] Stat Lab 09/12/18 00:55 Completed CRP HIGH SENSITIVITY Stat Lab 09/13/18 00:55 Completed LACTATE, PLASMA [CHEM] Stat Lab 09/13/18 00:55 Completed SED RATE [HEME] Stat Lab 09/13/18 00:55 Received URINALYSIS W/POSS RFLX CULT [URINALYSIS] Stat Lab 09/13/18 02:08 Uncollected 0.9% Sodium Chloride Inj [Ns] 1,000 ml Med 09/13/18 02:21 Active IV 999 mls/hr Piperacillin/Tazobactam [Zosyn] 3.375 gm Med 09/13/18 02:21 Discontinued 0.9% Sodium Chloride Inj [Ns] 50 ml IV NOW Vancomycin 1 gm/Ns Med 09/13/18 02:21 Active 1 gm in 250 ml IV NOW Result Diagrams: 09/12/18 00:55 09/12/18 00:55 - REASSESSMENT Reassessment #2 Status: other (Pt signed out to me by Dr. Dunbar pending call from hospitalist for admission. 63 y/o F with BL LE cellulitis and skin breakdown down to tendon on anterior right ankle. Treated with vanco and zosyn. Discussed case wtih Dr. Raman, Hospitalist, who will see and admit pt.) <Colette Galvez - Last Filed: 09/13/18 03:00> Departure - Departure Date of Disposition Decision: 09/13/18 Time of Disposition Decision: 02:25 Certified Medical Emergency: Emergent - Critical Care Note This patient required my direct & personal management of CC.: No <Mary Dunbar - Last Filed: 09/13/18 02:28> - Departure Time of Disposition Decision: 02:59 <Colette Galvez - Last Filed: 09/13/18 03:00> - Departure DIAGNOSIS: Skin erosion Cellulitis Qualifiers: Site of cellulitis: extremity Site of cellulitis of extremity: lower extremity Laterality: unspecified laterality Qualified Code(s): L03.119 - Cellulitis of unspecified part of limb Disposition: ADMITTED INPATIENT 09 Condition: Stable Referrals and Follow-Ups: Rosario Sandhu MD [Primary Care Provider] - Attestation - Physician/ SUKUMAR Attestation Patient care was provided by Advanced Practice Provider:: No The physician spent face to face time with patient:: Yes Advanced Practice Provider documentation review:: Supervising physician onsite and consulted in the evaluation and care of this patient. The physician did have a face to face encounter with the patient. <Mary Dunbar - Last Filed: 09/13/18 02:28> This chart was documented by the indicated scribe, (Serenity Trimble Scribe) and accurately reflects the services I performed and decisions made by Manjinder sorenson Julia T., MD, as attested by the provider's signature.
--- NOTE | 2018-09-13 18:30 | GENERAL SURGERY CONSULTATION ---
DATE: 09/13/2018 TIME SEEN: 5:53 p.m. HISTORY OF PRESENT ILLNESS: Ms. Vanegas is an unfortunate 63-year-old white female with severe osteoarthritis, who lives alone in an apartment. She was found by her brother somewhat confused, with her house in disarray. She apparently had compression hose on for months because of lower extremity edema. Because of her ulcerations of her legs, she was brought to the emergency department. She was found to have an exposed anterior tibial tendon as well as a posterior injury extending to near her Achilles tendon. There was also some erosion on the left leg posteriorly from the hose as well. She reports limited mobility at home, using a cane to get around the house. This is because of the severe osteoarthritis involving her hips. PAST MEDICAL HISTORY: Pertinent for hypertension, asthma, gastroesophageal reflux disease, diabetes, lower extremity edema, osteoarthritis and psoriatic arthritis. PAST SURGICAL HISTORY: Her previous surgeries include a cholecystectomy, right femur fracture repair, wisdom teeth removal. MEDICATIONS: Her current medications are listed. ALLERGIES: She has an allergy to codeine and sulfa. FAMILY HISTORY: Pertinent for COPD in her father. REVIEW OF SYSTEMS: As noted above. All other subsystems are negative. PHYSICAL EXAMINATION: Heart rate is 80, blood pressure 119/66. She has bilateral breath sounds. Heart is regular rate and rhythm. Abdomen is soft. She has normal dorsalis pedis pulses. She has some erythema on the lower legs bilaterally. She has exposed anterior tibial tendon with some purulent drainage there. There is also erosion posteriorly on both legs. LABORATORY DATA: White count is 8200, hemoglobin 10.2. BUN 18, creatinine 0.5. ASSESSMENT AND PLAN: I think at minimum this lady will lose her anterior tibial tendon. She does have adequate arterial flow and should heal wounds otherwise, with appropriate antibiotic therapy and appropriate wound care. This will limit her ambulation, which is already limited by her arthritis. I think a below-knee amputation would render her essentially immobile. My advice would therefore be simply to locally excise the involved tendons, heal her wounds and leave her with a brace, which will probably keep her at least somewhat ambulatory. Thanks for the opportunity to see her. cc: MD Madyson Ladd MD
[2018-09-13] MEDS: VANCOMYCIN 1,500 MG in NS 250 ML IV SCH (23:30)
[2018-09-14] MEDS: ZOSYN 4.5 GM in NS 100 ML IV SCH ×4 (02:37→19:54)
[2018-09-14 06:28] LABS: EOS# 0.41 X1000 (0.0-0.7); EOS% 6.9 % (0.0-10.0); HEMOGLOBIN 8.6 g/dL (12.0-16.0); LYMPH# 0.95 X1000 (1.2-3.4); MCH 26.4 PG (27-31); MCHC 30.7 g/dL (33-37); MCV 85.9 FL (81-99); MONO# 0.39 X1000 (0.11-0.59); MONO% 6.6 % (1.7-9.3); MPV 9.3 FL (7.4-10.4); NEUT# 4.17 X1000 (1.4-6.5); NEUT% 70.5 % (42.2-75.2); PLT 369 X1000 (130-400); RBC 3.26 XMIL (4.2-5.4); RDW 15.5 % (11.5-14.5); WBC 5.92 X1000 (4.8-10.8)
[2018-09-14 06:36] LABS: HEMOGLOBIN A1C 4.8 % (4.8-6.0)
[2018-09-14 06:44] LABS: AGAP 10; BUN 7 mg/dL (8-22); CALCIUM 7.7 mg/dL (8.8-10.2); CHLORIDE 104 mmol/L (98-107); COSMO 277; CREATININE 0.3 mg/dL (0.5-0.9); ESTIMATED GFR > 60; GLUCOSE 90 mg/dL (70-104); POTASSIUM 3.5 mmol/L (3.5-5.1); SODIUM 140 mmol/L (136-145); TCO2 26 mmol/L (25-35)
[2018-09-14] MEDS: LOVENOX SUBQ SCH (06:48)
[2018-09-14] MEDS: PRILOSEC PO SCH (06:48)
[2018-09-14] MEDS: TYLENOL PO PRN ×2 (07:01→19:45)
--- NOTE | 2018-09-14 08:10 | VASCULAR LAB ---
DATE: 09/13/2018 The patient has lower extremity ulcerations. Brachial pressure 139. The right AB index 1.2. Right great toe pressure is 117 for a right total brachial index of 0.84. The left AB index is 1.2. The left great toe pressure is 126 for a left total brachial index of 0.91. The PVRs are preserved bilaterally. INTERPRETATION: Normal resting lower extremity arterial study. cc: MD Madyson Ladd MD
--- NOTE | 2018-09-14 08:50 | PROGRESS NOTE ---
DATE: 09/14/2018 SUBJECTIVE: Ms. Vanegas was admitted to [facility] with bilateral lower extremity cellulitis and ulcers on the tibial aspect of the right leg and the right ankle near the Achilles tendon. An MRI of the right lower extremity demonstrated no evidence of osteomyelitis. Noninvasive arterial studies of the lower extremities demonstrated normal blood flow. She has less swelling and erythema and induration in the lower extremities bilaterally. The anterior tibial tendon of the right lower extremity is grossly visible. Wound and blood cultures are pending. Blood pressure is stable. Systolic blood pressures have been in the 130s whereas her diastolic blood pressures have been in the 50s and 60s. Her blood sugars are in the range of 84 to 113. OBJECTIVE: Vital signs: She is afebrile. Pulse 68, respirations 18, blood pressure 132/67. Cardiovascular: Regular rate and rhythm. Lungs: Clear. Abdomen: Soft, nontender with active bowel sounds. Extremities: Posterior tibial and dorsalis pedis pulses are 2+ and bounding bilaterally. There is decreased erythema and induration in the lower extremities bilaterally. There is still some gross discharge from the anterior tibial wound. ASSESSMENT AND PLAN: 1. Cellulitis of the lower extremities with associated wound near the Achilles tendon and tibial aspect of the right lower leg. We will continue broad-spectrum antibiotics including Zosyn and vancomycin pending wound and blood cultures. We will continue daily wound care. I suspect that she will ultimately lose the aforementioned tendon given normal blood flow in the leg and the lack of osteomyelitis. I am very hopeful that with appropriate antibiotics and prolonged wound care that the wound will heal and that way she could wear a brace. Potentially I believe that she would be a candidate for the LTAC unit as I anticipate that she will need prolonged wound care and physical therapy over the course of the next several weeks. 2. Hypertension. Her blood pressure is stable. We will continue lisinopril HCT 10/12.5 mg daily. 3. Type 2 duq-lrmhfuh-ztyhbdnje diabetes mellitus. Blood sugars are stable. We will continue an 1800 calorie ADA diet, pattern sugars, and a Humulin R sliding scale. cc: Madyson Sandhu MD
--- NOTE | 2018-09-14 08:56 | ORTHOPAEDICS PROGRESS NOTE ---
DATE: 09/14/2018 INCOMPLETE REPORT-- DICTATION STARTS HERE. CLINICAL HISTORY: The patient is a 63-year-old female, who has INCOMPLETE REPORT-- DICTATION ENDS HERE. cc: MD Madyson Salinas MD
[2018-09-14] MEDS ORDERED: CALMOSEPTINE OINTMENT TOP PRN (09:00)
[2018-09-14] MEDS: PRINZIDE 10/12.5MG PO SCH (09:47)
[2018-09-14] MEDS: ASPIRIN PO SCH (09:47)
[2018-09-14] MEDS: DULERA 100 MCG/5 MCG INHALER INH SCH ×3 (11:00→20:10)
--- NOTE | 2018-09-14 11:40 | ORTHOPAEDICS PROGRESS NOTE ---
DATE: 09/14/2018 CLINICAL HISTORY: Patient is a 62-year-old female, who was admitted 2 days ago with bilateral lower extremity cellulitis and pressure ulceration anteriorly and posteriorly to the right ankle with exposed tendon. Dr. Us's recommendation is to try and salvage the extremity and undergo debridement. PHYSICAL EXAMINATION: The patient's right lower extremity: The patient has a wound on the anterior aspect of the lower ankle with exposed anterior tibial tendon. Patient has ulceration down to the Achilles tendon posteriorly. IMPRESSION: Ulceration with exposed tendon, right ankle, anteriorly and posteriorly. PLAN: At this point, patient will continue with her IV antibiotics. Her wound was redressed today. We will discuss with Dr. Coyle for definitive treatment recommendations. We anticipate surgical management on Sunday. cc: MD Madyson Salinas MD
[2018-09-14] MEDS: NS 1,000 ML IV SCH ×2 (13:02→19:45)
[2018-09-14] MEDS: VANCOMYCIN 1,500 MG in NS 250 ML IV SCH (13:02)
[2018-09-15] MEDS: NS 1,000 ML IV SCH ×2 (00:13→19:47)
[2018-09-15] MEDS: VANCOMYCIN 1,500 MG in NS 250 ML IV SCH ×2 (00:16→13:15)
[2018-09-15] MEDS: TYLENOL PO PRN ×3 (02:41→20:01)
[2018-09-15] MEDS: ZOSYN 4.5 GM in NS 100 ML IV SCH ×4 (02:41→19:49)
[2018-09-15] MEDS: LOVENOX SUBQ SCH (05:38)
[2018-09-15] MEDS: PRILOSEC PO SCH ×2 (05:38→06:23)
--- NOTE | 2018-09-15 08:03 | ORTHOPAEDICS PROGRESS NOTE ---
DATE: 09/15/2018 SUBJECTIVE: The patient is 60-year-old female with ulceration with exposed tendon right ankle, anteriorly and posteriorly. She is currently resting comfortably. OBJECTIVE: On physical exam, patient's dressing is intact. IMAGING: An MRI revealed no evidence of osteomyelitis at this point. Did reveal the large anterior leg soft tissue ulceration of pubis anterior. IMPRESSION: Ulceration was exposed tendon right ankle, anteriorly to posteriorly. PLAN: At this point, the patient will continue IV antibiotics. Will make her NPO after midnight for the possibility of debridement tomorrow per Dr. Coyle. cc: MD Madyson Salinas MD
[2018-09-15] MEDS: PRINZIDE 10/12.5MG PO SCH (08:18)
[2018-09-15] MEDS: ASPIRIN PO SCH (08:18)
[2018-09-15] MEDS: DULERA 100 MCG/5 MCG INHALER INH SCH ×2 (11:30→19:40)
--- NOTE | 2018-09-15 14:09 | PROGRESS NOTE ---
DATE: 09/15/2018 Ms. Vanegas says her foot feels better. She has remained afebrile, temperature 98.5 degrees, pulse 65, respirations 20, blood pressure 123/52. Pupils are equal and round. Lungs are clear in all lung palacios. Cardiovascular regular rhythm, rate without murmur, S3. Abdomen is soft. Urine output is about 5700 mL. ASSESSMENT AND PLAN: 1. Ulceration exposed tendon of the right ankle anterior to posterior. Continue present antibiotics. NPO after midnight. Possible debridement tomorrow per Dr. Coyle. 2. Cellulitis lower extremities associated wound near the Achilles tendon, tibial aspect of the right lower leg. 3. Hypertension. 4. Diabetes mellitus type 2. Continue pattern sugar, sliding scale. LAB: Yesterday white count 5920, hematocrit 28, platelet count 369,000. Blood sugars 146, 141, 118. Review of her orders, getting Tylenol 650 mg p.o. q.6 hours p.r.n., aspirin 81 mg a day, Lovenox 30 mg subcu q.24 hours, lisinopril hydrochlorothiazide combination and I believe she taking it is a 09/05.5 one a day, methyl zinc oxide topically p.r.n., mometasone formoterol 2 puffs inhaled b.i.d., normal saline at 75 mL an hour, Prilosec 40 mg a day, vancomycin 1500 mg IV q.12 and Zosyn 4.5 g IV q.6. cc: MD Madyson Barksdale MD
[2018-09-16] MEDS: VANCOMYCIN 1,500 MG in NS 250 ML IV SCH ×2 (01:17→14:58)
[2018-09-16] MEDS: TYLENOL PO PRN (01:58)
[2018-09-16] MEDS: ZOSYN 4.5 GM in NS 100 ML IV SCH ×2 (01:58→07:51)
[2018-09-16] MEDS: LOVENOX SUBQ SCH (05:48)
[2018-09-16] MEDS: PRILOSEC PO SCH (07:38)
--- NOTE | 2018-09-16 08:13 | ORTHOPAEDICS CONSULTATION ---
DATE: 09/16/2018 SUBJECTIVE: Ms. Vanegas is lying in bed this morning. Overall feeling okay. She is not really feeling sick overall. OBJECTIVE: Right lower extremity exam, dressing is clean, dry, and intact. She has good pulse to the foot. She has good dorsiflexion and plantar flexion of the foot. Her erythema does look a lot better than it did on Sunday. The left lower extremity exam, her erythema throughout the leg looks a lot better as well. ASSESSMENT: 1. Right diabetic foot ulcers with exposed tendon. 2. Bilateral lower extremity cellulitis. PLAN: I discussed with Ms. Vanegas about this right lower extremity. Dr. Us has seen her and has recommended also debridement. He also did arterial studies which looked like she did have some good blood flow. It looks like she has responded well to IV antibiotics as well with the erythema to her legs improving. So I discussed with her about going in today from the OR standpoint and do an irrigation and debridement. She did not want to make a final decision about taking the tendon out and so what we will do today is mainly just an irrigation and debridement. We will not plan on removing the tendon against her wishes. At this point, we may end up needing to put a wound VAC on that right lower extremity. We will plan on washing out the tibialis anterior tendon and the Achilles tendon. I went over with her the procedure, risks, benefits, potential complications. Risks include, but are not limited to infection, wound healing problems, damage to nerves, arteries, veins, numbness, continued pain, need for further operative intervention, anesthesia risks and DVT risks. After discussing these with the patient, she expressed understanding and wished to proceed. She presents here now. We will get everything set up for the OR this morning. cc: MD Madyson Sierra MD
[2018-09-16] MEDS: DULERA 100 MCG/5 MCG INHALER INH SCH ×2 (09:07→21:20)
[2018-09-16] MEDS ORDERED: NEOSPORIN G.U. IRRIGANT ONE (09:13)
[2018-09-16] MEDS ORDERED: DIPRIVAN 1% ONE (09:24)
[2018-09-16] MEDS ORDERED: XYLOCAINE-MPF 2% ONE (09:24)
[2018-09-16] MEDS: LEVAQUIN 500 MG/D5W 500 MG/100 ML IVPB IV SCH (09:44)
[2018-09-16] MEDS ORDERED: FENTANYL ONE (09:44)
[2018-09-16] MEDS ORDERED: ZOFRAN ONE (10:04)
[2018-09-16] MEDS: DILAUDID ONE ×4 (10:59→11:30)
--- NOTE | 2018-09-16 11:31 | OPERATIVE NOTE ---
PROCEDURE DATE: 09/16/2018 PREOPERATIVE DIAGNOSIS: Right pressure sores to the ankle, anteriorly and posteriorly. POSTOPERATIVE DIAGNOSIS: Right pressure sores to the ankle, anteriorly and posteriorly. PROCEDURE: Right leg irrigation and debridement. SURGEON: Jose Coyle MD MASTER OCEAN YACHT: JEWELS Asher, who was an integral part of the case, helping with all aspects of the case, helping to increase our OR efficiency greatly. ANESTHESIA: General with LMA. TOURNIQUET: No tourniquet was used. IMPLANTS: None. DISPOSITION: To PACU, hemodynamically stable. INDICATION FOR PROCEDURE: Ms. Vanegas is a 63-year-old female, who presented to the emergency department on Sunday with draining wounds on this right leg and cellulitis of bilateral legs. She was admitted over the weekend and received IV antibiotics, and a lot of her cellulitis has gotten better. I did discuss with her about operative intervention today to go ahead and perform irrigation and debridement. She did not want her tibialis anterior tendon removed at all even if it needed to be today, so discussed with her about just doing an I and D and assessing everything and assessing her potential for healing. DESCRIPTION OF PROCEDURE: Ms. Vanegas was identified in the preoperative holding area. The right foot was marked as the correct surgical site. She was then wheeled to the operating room and placed supine on the operating table. All bony prominences were well padded. She was induced under general anesthesia. LMA was placed. She was then prepped with Betadine and Betadine solution, draped in a normal sterile fashion. Surgical pause was performed. We identified the correct patient, the correct side, and the correct procedure. Preoperative antibiotics were given. Looking at the tendon, it was a little bit desiccated anteriorly, the anterior tibial tendon was. I did not see any purulence in the sheath at all. I did make a small incision superiorly and opened up the sheath and there was no purulence up the sheath. I did take out a little bit of the anterior portion of the tendon that was completely desiccated. I then used a curette and scraped all the tissue and got back to good granulation-looking tissue around the tendon. We looked posteriorly as well. I used a curette and scraped all of that tissue to get back to good granulation tissue and it looked like the Achilles was a little bit exposed, but not much. We then irrigated everything copiously with normal saline. Her wound bed actually looked really good around that anterior tibial tendon. It is just that the tendon was very much exposed and there was not lot of skin to even form around the tendon. It was just at the base. We then put a Vashe wet-to-dry on and then put her in a splint. She was awoken from general anesthesia, moved to her own bed, and taken to PACU in stable condition. PLAN: Postoperatively, she will be nonweightbearing, right lower extremity, and we will continue to follow her. We got a Wound Care consult as well. cc: MD Madyson Sierra MD
[2018-09-16] MEDS ORDERED: NORCO-5 ONE (11:52)
[2018-09-16] MEDS: ASPIRIN PO SCH (13:20)
[2018-09-16] MEDS: PRINZIDE 10/12.5MG PO SCH (13:20)
--- NOTE | 2018-09-16 13:52 | PROGRESS NOTE ---
DATE: 09/16/2018 SUBJECTIVE: Ms. Vanegas was admitted to [facility] with cellulitis of the lower extremities. She has pressure sores on the ankle anteriorly and posteriorly on the right lower extremity. The erythema, swelling and induration is much improved on IV antibiotics. She is scheduled for right leg irrigation and debridement later today. Her blood pressure has generally been well controlled. She denies any chest pain, palpitations, or anginal equivalents. OBJECTIVE: VITAL SIGNS: Blood sugars are running from 93 to 145. She is afebrile. Pulse 66, BP 155/63. Respiratory rate 16. CV: Regular rate and rhythm. Lungs: Clear. Abdomen: Soft, nontender, with active bowel sounds. Extremities: There are pressure ulcers on the tibial aspect of the right leg and posteriorly near the ankle. Wound cultures grew out Clostridium and Morganella morganii. ASSESSMENT AND PLAN: 1. Pressure ulcers of the right lower extremity with associated cellulitis. The cellulitis is improving. I will stop the Zosyn and switch to Levaquin. Based upon microbiology results we will continue vancomycin. The patient is scheduled for irrigation and wound debridement. I believe she will need prolonged wound care. She is essentially immobile and I believe that she would potentially be a good candidate for the long-term acute care unit in [place] and we will place a consult to them. 2. Hypertension. Her blood pressure is stable. We will continue lisinopril HCT 10/12.5 mg daily. 3. Type 2 sfi-yjovwcl-xuzgopirc diabetes mellitus. Her blood sugars are stable. We will continue pattern sugars, Humulin R sliding scale, and an 1800 calorie ADA diet. cc: Madyson Sandhu MD
[2018-09-16] MEDS ORDERED: ZOFRAN IV PRN (15:07)
[2018-09-16] MEDS: NORCO-5 PO PRN ×2 (15:51→20:43)
[2018-09-16] MEDS: NS 1,000 ML IV SCH (20:48)
[2018-09-17] MEDS: NORCO-5 PO PRN ×5 (01:55→21:51)
[2018-09-17] MEDS: LOVENOX SUBQ SCH (05:24)
[2018-09-17] MEDS: PRILOSEC PO SCH ×2 (05:24→08:13)
[2018-09-17] MEDS: VANCOMYCIN 1,500 MG in NS 250 ML IV SCH ×2 (05:38→12:49)
[2018-09-17] MEDS: DULERA 100 MCG/5 MCG INHALER INH SCH ×2 (08:01→19:32)
[2018-09-17] MEDS: LEVAQUIN 500 MG/D5W 500 MG/100 ML IVPB IV SCH (09:00)
[2018-09-17] MEDS: PRINZIDE 10/12.5MG PO SCH (09:01)
[2018-09-17] MEDS: ASPIRIN PO SCH (09:01)
[2018-09-17] MEDS: PERIDEX MT SCH ×2 (09:04→20:08)
[2018-09-17] MEDS: NS 1,000 ML IV SCH ×2 (09:05→12:50)
--- NOTE | 2018-09-17 09:09 | ORTHOPAEDICS PROGRESS NOTE ---
DATE: 09/17/2018 SUBJECTIVE DATA: Ms. Vanegas is lying comfortably in bed. She states her pain is under better control. OBJECTIVE DATA: Right lower extremity exam: The surgical splint was clean, dry and intact. I did take the splint down and underneath the anterior wound actually looks a lot better. It already has some granulation tissue and good red beefy tissue. That tendon, however, is already getting a little bit desiccated. It is still functional. However, it is already starting to get dried out, and it is going to be very difficult to get any tissue to come up over that tendon. The posterior wound looks good. The tendon is barely exposed in the back. Her erythema into the whole leg looks much better. She does have quite a bit of edema to the leg. Left lower extremity exam: The left lower extremity does still have some erythema, but overall that looks better. ASSESSMENT: Status post right ankle irrigation and debridement. PLAN: Dr. Coyle had a longer discussion with Ms. Vanegas this morning. We discussed her options. Really the best thing to do is going to be to remove part of the anterior tibial tendon. This is really going to give that wound the best chance to heal. Ms. Vanegas is not very ambulatory. So, we think we could do some bracing that would help keep the foot at a 90 degrees angle and allow this wound to heal better. The risk of leaving that tendon exposed would be longer wound healing time and a higher risk for return of infection. So, today we are going to do a wet-to-dry dressing and keep her in a surgical splint. We are going to plan to do a right irrigation debridement with anterior tibial tendon excision, and wound VAC placement at that time. It does look like we are planning on long-term care for her. We do agree with this. We will get consent signed and plan to do this on . Dictated by JEWELS Asher for Jose Coyle MD cc: JEWELS Asher MD M. Neel Roberts, MD
--- NOTE | 2018-09-17 12:56 | PROGRESS NOTE ---
DATE: 09/17/2018 SUBJECTIVE: Ms. Vanegas has less swelling and erythema in the right lower extremity. She underwent right leg irrigation and debridement. Dr. Coyle has recommended to her to surgically remove the anterior tibial tendon, and to apply a wound VAC to improve the chances of healing. Blood pressure is stable. She denies any chest pain, palpitations or anginal equivalents. She is afebrile. OBJECTIVE: Vital Signs: Pulse 81, respirations 16, BP 140/72. CV: Regular rate and rhythm. Lungs: Clear. Abdomen: Soft, nontender, with active bowel sounds. Extremities: There are pressure ulcers on the tibial aspect of the right leg and posteriorly near the ankle. ASSESSMENT AND PLAN: 1. Pressure ulcers of the right lower extremity with associated cellulitis. The cellulitis continues to improve clinically. We will continue Levaquin and vancomycin. She is scheduled for surgical excision of the anterior tibial ligament with placement of a wound vac. She will need prolonged wound care to improve the chances of the wound healing. We have consulted Particle Board Supervisor to arrange for evaluation for the longterm acute care hospital. 2. Hypertension. Her blood pressure is stable. We will continue lisinopril/hydrochlorothiazide 10/12.5 mg daily. cc: Madyson Sandhu MD
[2018-09-17] MEDS: HYDROPHOR OINTMENT TOP SCH (20:07)
[2018-09-18] MEDS: VANCOMYCIN 1,500 MG in NS 250 ML IV SCH (00:56)
[2018-09-18] MEDS: NS 1,000 ML IV SCH ×3 (00:56→16:56)
[2018-09-18] MEDS: NORCO-5 PO PRN ×3 (05:45→21:06)
[2018-09-18] MEDS: PRILOSEC PO SCH ×2 (05:45→06:15)
[2018-09-18] MEDS: LOVENOX SUBQ SCH (05:45)
[2018-09-18] MEDS: DULERA 100 MCG/5 MCG INHALER INH SCH ×2 (07:41→19:33)
[2018-09-18] MEDS ORDERED: GLUCOPHAGE XR PO SCH (08:00)
[2018-09-18] MEDS ORDERED: GENTAMICIN 100 MG/NS 100 MG/100 ML IVPB IV ONE (08:00)
--- NOTE | 2018-09-18 08:14 | PROGRESS NOTE ---
DATE: 09/18/2018 SUBJECTIVE: Mrs. Vanegas has a history of hypertension. Her blood pressure is fluctuating. Systolic blood pressures are in the 150s and 160s. She denies any chest pain, palpitations, or anginal equivalents. She has a history of type 2 noninsulin-dependent diabetes mellitus. Her blood sugars are generally stable. Sugars are ranging from 70 to 109. She did have one isolated elevated sugar of 170. The cellulitis in her lower extremities continues to improve. She is scheduled for surgery tomorrow for excision of the anterior tibial tendon and placement of a wound VAC. She has tentatively been accepted to the long-term acute care unit in [place]. OBJECTIVE: Vital Signs: Temperature 98.9 degrees, pulse 60, respirations 16, BP 167/72. CV: Regular rate and rhythm. Lungs: Clear. Abdomen: Soft, nontender, with active bowel sounds. Extremities: She still has 1+ pitting edema in the lower extremities. There is significantly less erythema and induration. LABORATORY DATA: Blood cultures grew out Clostridium, and the wound culture grew out Morganella Morgagni. ASSESSMENT AND PLAN: 1. Hypertension. Her blood pressure is too high. I will increase the Prinzide to 20/12.5 mg daily. 2. Type 2 noninsulin-dependent diabetes mellitus. We will continue pattern sugars and a Humulin R sliding scale. 3. Cellulitis of the lower extremities with a pressure ulcer on the tibial aspect of the right ankle and posteriorly as well. We will continue broad-spectrum antibiotics, including Levaquin. I will stop the vancomycin. We will give her a bolus of gentamicin. cc: Madyson Sandhu MD
--- NOTE | 2018-09-18 08:24 | ORTHOPAEDICS PROGRESS NOTE ---
DATE: 09/18/2018 SUBJECTIVE DATA: Ms. Vanegas is lying comfortably in bed. Her brother is at the bedside. OBJECTIVE DATA: Right lower extremity exam: The surgical splint was clean, dry, and intact and I did not take it down today. She has good sensation to those toes. Cellulitis overall looks better. Left lower extremity exam: The cellulitis on this side definitely looks better. ASSESSMENT: Status post right irrigation and debridement of ankle. PLAN: Ms. Vanegas's brother was at the bedside today, so Dr. Coyle was able to discuss the plan for tomorrow. Again, the plan is to do another irrigation and debridement of this right ankle wound. At this time, we are going to plan to take down that anterior tibial tendon. We do think this will give this wound a chance to heal and progress much more quickly. We are going to plan to do this tomorrow. She does have an n.p.o. order in for midnight tonight. Dr. Coyle did discuss risks and benefits of the procedure. Risks include but are not limited to damage to nerves, arteries, vein, infection, poor wound healing, continued pain, DVT, and risk of general anesthesia. However, the risk of not doing the procedure does create a high risk of infection and greater odds of a BKA. She will need long-term wound care management. We are going to plan to place a wound VAC at the time of the procedure. So, we will work on doing all this tomorrow and getting her set up with a long-term care facility. Dictated by JEWELS Asher for Jose Coyle MD cc: JEWELS Asher MD M. Neel Roberts, MD
[2018-09-18] MEDS: LEVAQUIN 500 MG/D5W 500 MG/100 ML IVPB IV SCH (10:13)
[2018-09-18] MEDS: ASPIRIN PO SCH (10:13)
[2018-09-18] MEDS: PERIDEX MT SCH ×2 (10:14→21:07)
[2018-09-18] MEDS: HYDROPHOR OINTMENT TOP SCH (10:14)
[2018-09-18] MEDS: MIRALAX PO SCH (10:24)
[2018-09-18] MEDS: PRINZIDE 20/12.5MG PO SCH (10:25)
[2018-09-19] MEDS: NS 1,000 ML IV SCH ×2 (01:10→21:48)
[2018-09-19] MEDS: NORCO-5 PO PRN (01:10)
[2018-09-19 06:21] LABS: HEMATOCRIT 27.7 % (37.0-47.0); HEMOGLOBIN 8.4 g/dL (12.0-16.0); MCH 27.2 PG (27-31); MCHC 30.3 g/dL (33-37); MCV 89.6 FL (81-99); MPV 9.3 FL (7.4-10.4); RBC 3.09 XMIL (4.2-5.4); RDW 15.6 % (11.5-14.5); WBC 4.79 X1000 (4.8-10.8)
[2018-09-19] MEDS: LOVENOX SUBQ SCH (06:34)
[2018-09-19] MEDS: PRILOSEC PO SCH (06:35)
[2018-09-19 06:39] LABS: AGAP 10; BUN 6 mg/dL (8-22); CALCIUM 7.9 mg/dL (8.8-10.2); CHLORIDE 103 mmol/L (98-107); COSMO 280; CREATININE 0.3 mg/dL (0.5-0.9); ESTIMATED GFR > 60; GLUCOSE 89 mg/dL (70-104); POTASSIUM 2.9 mmol/L (3.5-5.1); SODIUM 142 mmol/L (136-145); TCO2 29 mmol/L (25-35)
[2018-09-19] MEDS: DULERA 100 MCG/5 MCG INHALER INH SCH ×2 (07:44→19:30)
--- NOTE | 2018-09-19 08:36 | PROGRESS NOTE ---
DATE: 09/19/2018 SUBJECTIVE: Ms. Vanegas is resting comfortably in bed this morning. The cellulitis in her lower extremities has improved significantly. She remains afebrile on IV antibiotics. She is scheduled for irrigation and debridement as well as takedown of the anterior tibial tendon today with placement of a wound VAC. Blood pressure is generally stable. She denies any chest pain, palpitations, or anginal equivalents. OBJECTIVE: Vital signs: Temperature 98 degrees, pulse 65, respirations 14, blood pressure 148/58. Cardiovascular: Regular rate and rhythm. Lungs: Clear. Abdomen: Soft, nontender, with active bowel sounds. ASSESSMENT AND PLAN: 1. Pressure ulcers of the right lower extremity posteriorly and anteriorly. We will continue broad-spectrum antibiotics and she is scheduled for takedown of the anterior tibial tendon today with placement of a wound VAC. She has been accepted by of the long-term acute care unit and we anticipate discharge tomorrow barring unforeseen events. 2. Hypertension. Blood pressure is stable. We will continue Prinzide 20/12.5 mg daily. cc: Madyson Sandhu MD
[2018-09-19] MEDS: LEVAQUIN 500 MG/D5W 500 MG/100 ML IVPB IV SCH (08:37)
--- NOTE | 2018-09-19 10:56 | ORTHOPAEDICS PROGRESS NOTE ---
DATE: 09/19/2018 SUBJECTIVE DATA: Ms. Vanegas is laying comfortably in bed. OBJECTIVE DATA: Right lower extremity exam: Her soft dressing is clean, dry, and intact. She has no surrounding erythema or drainage. Cellulitis on left lower extremity is looking better. ASSESSMENT: Status post right irrigation and debridement of ankle. PLAN: We will plan on taking Ms. Vanegas down to the OR today for further irrigation, debridement and excision of the anterior tibial tendon with wound VAC placement. We do feel that this is the best chance of healing that wound. We reviewed the risks and benefits with her again this morning. Again, risks include, but are not limited to damage to nerves, arteries, veins, infection, poor wound healing, continued pain, DVT, and risk of general anesthesia. She will require long-term wound management. It looks like we are getting her set up to go to a long-term care facility. We will plan on doing this later this afternoon. Dictated by JEWELS Asher for Jose Coyle MD cc: JEWELS Asher MD M. Neel Roberts, MD
[2018-09-19 12:33] LABS: ALBUMIN 2.4 g/dL (3.5-5.0); PREALBUMIN 10.6 mg/dL (20-40)
[2018-09-19] MEDS ORDERED: BOOSTRIX VACCINE IM ONE (13:20)
[2018-09-19] MEDS ORDERED: PNEUMOVAX 23 IM ONE (13:20)
[2018-09-19] MEDS ORDERED: VERSED ONE (13:28)
[2018-09-19] MEDS ORDERED: XYLOCAINE-MPF 2% ONE (13:28)
[2018-09-19] MEDS ORDERED: FENTANYL ONE (13:28)
[2018-09-19] MEDS ORDERED: DIPRIVAN 1% ONE (13:29)
[2018-09-19] MEDS ORDERED: TORADOL ONE (14:35)
[2018-09-19] MEDS ORDERED: DECADRON ONE (14:35)
[2018-09-19] MEDS ORDERED: ZOFRAN ONE (14:35)
[2018-09-19] MEDS: DILAUDID ONE ×2 (15:17→15:20)
--- NOTE | 2018-09-19 15:37 | DISCHARGE SUMMARY ---
ADMISSION DATE: 09/13/2018 DISCHARGE DATE: 09/20/2018 DISCHARGE DIAGNOSES: 1. Cellulitis and abscess of the right leg. 2. Stage IV pressure ulcer of the right lower extremity. 3. Essential hypertension. 4. Type 2 xci-kjxyygh-rvxerqznw diabetes mellitus without complications. 5. Degenerative arthritis. 6. Gastroesophageal reflux disease. DISCHARGE INSTRUCTIONS: 1. The patient will be transferred via ambulance to the long-term acute care unit at [facility]. 2. 1800 calorie ADA diet. ACTIVITY: As tolerated. MEDICATIONS: 1. Dulera 100/5 two puffs b.i.d. 2. Resource Engineer ointment applied to ulcer of the right lower extremity daily. 3. Lovenox 30 mg subcutaneously daily. 4. MiraLAX 17 g in 8 ounces of water daily. 5. Prinzide 20/12.5 mg daily, 6. Tylenol 650 mg q.6 hours p.r.n. temperature greater than 101. 7. Zofran 4 mg IV q.6 hours. 8. Alligator 5 one q.4 hours p.r.n. pain. 9. Omeprazole 40 mg daily. 10. Aspirin 81 mg daily. 11. Levofloxacin 500 mg IV daily for 7 days. DISCHARGE PHYSICAL EXAMINATION: This is a chronically ill-appearing 63-year-old lady in no apparent distress. She is afebrile. Pulse 60, respiratory rate 13, pulse 61, and temperature 98 degrees. CV: Regular rate and rhythm. Lungs: Clear. Abdomen: Soft, nontender with active bowel sounds. Extremities: There is a stage IV pressure ulcer on the anterior aspect of the right ankle and posteriorly as well. HISTORY: Mrs. Vanegas was admitted to [facility] for evaluation of right lower extremity ulcers and cellulitis of the right lower extremity. She had been wearing compression hose on a daily basis, and had never taken the compression hose off. She was noted to have marked erythema, redness, swelling and warmth in the right lower leg. She had a stage IV pressure ulcer near the right ankle both anteriorly and posteriorly. The patient was admitted to [facility]. She was started on broad-spectrum antibiotics including Zosyn and vancomycin pending cultures. One blood culture grew out Clostridium. The wound culture grew out Morganella morganii. Based on the CHENTE, the patient was transitioned from Zosyn to Levaquin and gentamicin. Over the course of her hospitalization, the cellulitis greatly improved. Noninvasive arterial studies of the right lower extremity demonstrated no significant peripheral arterial disease. An MRI of the right lower extremity demonstrated no evidence of osteomyelitis. Dr. Coyle performed debridement and irrigation of the stage IV ulcer. He later took her back to surgery to excise and take down the anterior tibial tendon, and apply a wound vacuum-assisted closure. The wound vac will need to be changed 3 times weekly. Because of her immobility and severity of the ulcers of the right lower extremity, she will most likely need prolonged wound care. We will change the wound VAC 3 times weekly. We will continue broad-spectrum IV antibiotics. We placed a consult to the long-term acute care's unit, and she was accepted for long-term care. She does have a history of mild intermittent asthma. She was breathing comfortably throughout her hospitalization. She was continued on Dulera 100/5 two puffs b.i.d. She does have a history of hypertension. Her blood pressure is generally well controlled on lisinopril 20/12.5 mg daily. She denies any chest pain, palpitations, or anginal equivalents. She does have a history of type 2 [id number]-jyphfatjw diabetes mellitus. She was continued on pattern sugars, Humulin R sliding scale, and an 1800 calorie ADA diet. Having reached maximum hospital benefit, the patient was discharged in stable condition. cc: MD CANDACE Larry
[2018-09-19] MEDS: MIRALAX PO SCH (16:13)
[2018-09-19] MEDS: PERIDEX MT SCH ×2 (16:13→21:43)
[2018-09-19] MEDS: PRINZIDE 20/12.5MG PO SCH (16:28)
[2018-09-19] MEDS: ASPIRIN PO SCH (16:28)
[2018-09-19] MEDS: HYDROPHOR OINTMENT TOP SCH (16:29)
--- NOTE | 2018-09-19 16:51 | OPERATIVE NOTE ---
PROCEDURE DATE: 09/19/2018 PREOPERATIVE DIAGNOSIS: 1. Right Stage IV pressure ulcer to the anterior ankle and Stage IV pressure ulcer to the posterior ankle. 2. Right tibialis anterior tendon exposure. POSTOPERATIVE DIAGNOSES: 1. Right Stage IV pressure ulcer to the anterior ankle and Stage IV pressure ulcer to the posterior ankle. 2. Right tibialis anterior tendon exposure. PROCEDURE: 1. Right tibialis anterior tendon excision. 2. Irrigation debridement wound. 3. Right ankle wound VAC placement. SURGEON: Dr. Jose Coyle MICROGRINDER OPERATOR: JEWELS Asher, who was an integral part of the case, helping with all aspects of the case. She helped increase our OR efficiency greatly. ANESTHESIA: General with LMA. TOURNIQUET: No tourniquet was used. ESTIMATED BLOOD LOSS: About 10 mL. DISPOSITION: To PACU, hemodynamically stable. INDICATION FOR PROCEDURE: Ms Vanegas is a 63-year-old female who I have been taking care of since she has been in the hospital. She started with a lot of cellulitis and infection in that right lower extremity. We ended up washing everything out and I discussed with her about tendon excision it just did not look like she was going to be able to heal this anterior wound without removing that tendon and she expressed understanding and wished to proceed. DESCRIPTION OF PROCEDURE: Ms. Vanegas was identified in the preoperative holding area. The right foot was marked as correct surgical site. She was then wheeled to the operating room, placed supine on the operating table. All bony prominences well padded. She was induced under general anesthesia. LMA was placed. Right lower extremity then prepped with Betadine solution, draped in normal sterile fashion. Surgical pause was performed. We identified the correct patient, correct side, and the correct procedure. Preop antibiotics were given. I took out the 2 sutures placed last time. I was able to get an Allis clamp on that tibialis anterior tendon. We pulled it as much as we could and transected it way under the skin so it would retract into the leg and not be in the wound bed at all. We then did the same thing distally. Transected it so it would not retract into the foot. Actually after that there was a really good granulation tissue in the in the wound. We then irrigated everything copiously with normal saline. The wound looked nice and clean. The posterior wound with exposed Achilles tendon looked like it was nice and clean as well but we did perform irrigation and debridement of it. We debrided some of the slough that was there. There was some granulation tissue already over the Achilles tendon and the Achilles tendon was barely visible in the wound. After thorough irrigation, debridement I then placed a wound VAC anteriorly and then hooked it to suction and soft dressing was applied. She was then awoken from general anesthesia, moved to her own bed and taken to PACU in stable condition. PLAN: Postop she will be nonweightbearing right lower extremity. I will see her in about a week in clinic. She will be discharged to an [facility] tomorrow. cc: MD Madyson Sierra MD
[2018-09-19] MEDS: TYLENOL PO PRN (21:48)
[2018-09-20 05:23] VITALS: BP 148/78
[2018-09-20] MEDS: PRILOSEC PO SCH (06:49)
[2018-09-20] MEDS: NORCO-5 PO PRN (06:49)
[2018-09-20] MEDS: LOVENOX SUBQ SCH (06:49)
--- NOTE | 2018-09-20 13:50 | ORTHOPAEDICS PROGRESS NOTE ---
DATE: 09/20/2018 SUBJECTIVE: Ms. Vanegas is lying in bed this morning. Overall, actually pain is very well controlled. OBJECTIVE: Right lower extremity exam, dressing is clean, dry, and intact. Wound VAC is in place and hooked to 125 mm suction. ASSESSMENT: Status post right irrigation, debridement pressure wound with an excision tibialis anterior tendon. PLAN: Suspect she is going to go to [facility] today. She is going to be in a wound VAC. That will need to be changed 3 times a week. She will need an AFO for that right lower extremity to be in and I will see her in 1 week in clinic. cc: MD Madyson Sierra MD
== END 2018-09-20 08:03 | DRG 579 ==
LOC: SUPCPDRO → ED 23:22 → SUATTDRO 09-13 04:39 → EDIPHOLD 09-13 04:39 → 3N 09-13 15:51 → EDIPHOLD 09-13 16:00 → 4N 09-13 19:07
PROVIDERS: ADMIT Internal Medicine; ATTEND Internal Medicine
CPT/HCPCS: 73590; 73723; 80048; 80053; 80202; 81001; 82040; 82948; 83036; 83605; 84134; 85025; 85027; 85651; 86141; 87040; 87070; 87076; 87077; 87186; 88304; 90715; 90732; 93923; 94640; 94761; 94799; 96361; 96365; 96366; 96367; 96372; 97110; 97163; 97530; 99285; A9270; A9579; J0692; J1100; J1170; J1580; J1650; J1885; J1956; J2250; J2405; J2543; J3010; J3370; J7030; J7050; XXXXX